=== PATIENT | female | born 1975 | race Caucasian/White ===

== ENCOUNTER 2023-03-31 13:11 | Emergency (ER) | payer OTHER, SELFPAY ==
[2023-03-31 13:13] VITALS: BP 124/81
[2023-03-31 13:32] LABS: % Basophils 0.3 % (0-2); % Eosinophils 0.7 % (0-6); % Immature Granulocytes 0.1 % (0-0.5); % Lymphocytes 13.4 % (20.5-51.1); % Monocytes 7.3 % (1.7-9.3); % Neutrophils 78.2 % (42.2-75.2); Absolute Eosinophils 0.1 10^3/uL (0-0.7); Absolute Lymphocytes 1.5 10^3/uL (1.2-3.4); Absolute Monocytes 0.8 10^3/uL (0.1-0.6); Absolute Neutrophils 8.5 10^3/uL (1.4-6.5); Hematocrit 40.1 % (37.0-47.0); Hemoglobin 14.1 g/dL (12.0-16.0); Mean Corp Hgb Conc. 35.2 g/dL (33.0-37.0); Mean Corpuscular Hgb 31.2 pg (27.0-31.0); Mean Corpuscular Volume 88.7 fL (81.0-99.0); Mean Platelet Volume 9.7 fL (7.4-10.4); Nucleated Red Blood Cells % 0 %; Platelet Count 281 10^3/uL (130-400); Red Blood Cell Count 4.52 10^6/uL (4.20-5.40); White Blood Cell Count 10.9 10^3/uL (4.8-10.8)
[2023-03-31 13:48] LABS: ALT (SGPT) 26 U/L (0-35); AST (SGOT) 23 U/L (14-36); Albumin 4.5 g/dl (3.5-5.0); Alkaline Phosphatase 63 U/L (38-126); Blood Urea Nitrogen 12 mg/dl (7-17); Calcium 9.4 mg/dl (8.4-10.2); Carbon Dioxide 27 mmol/L (22-30); Chloride 105 mmol/L (98-107); Glucose 88 mg/dl (70-99); Potassium 4.2 mmol/L (3.5-5.1); Sodium 136 mmol/L (135-145); Total Bilirubin 0.8 mg/dl (0.2-1.3); Total Protein 7.2 g/dl (6.3-8.2); eGFR > 60.00
[2023-03-31 15:39] LABS: Urine Albumin Negative (Neg - Trace); Urine Bilirubin Negative (Negative); Urine Character Clear (Clear); Urine Color Yellow; Urine Glucose Negative (Negative); Urine Ketone Negative (Negative); Urine Leukocyte Negative (Negative); Urine Nitrite Negative (Negative); Urine Occult Blood Negative (Negative); Urine Urobilinogen Negative (Neg - 1+)
[2023-03-31 15:53] LABS: HCG, Urine Qualitative Screen Negative
--- NOTE | 2023-03-31 16:58 | ED.GENMED ---
History of Present Illness
General
Chief Complaint: Abdominal Pain
Source: patient
Exam Limitations: none
Time Seen by Provider: 03/31/23 16:26
Travel History
Have you had any contact with someone who has COVID-19?: No
Do you have any symptoms of coronavirus? Fever > 100 degrees, chills, cough, shortness of breath, sore throat, loss of taste or smell, muscle aches, or headache?: No
History of Present Illness
History of Present Illness:
47-year-old female presents complaining of 2 to 3 days worth of lower abdominal and pelvic pressure left greater than the right. No nausea vomiting or fever. No vaginal discharge. She has an IUD. She has a history of diverticulitis. No flank
pain. No other complaints at this time. No urinary symptoms
Past History
Past History
ED Past Medical History: None
ED Past Surgical History: Gynecological
Social History
Tobacco: Non-smoker
Alcohol: None
Drug: None
Personal:
Living: with family
Employment: Employed
Phy Exam
Physical Exam
Physical Exam:
General: Well-appearing female no acute respiratory distress
HEENT: Normocephalic atraumatic
Heart: Regular rate and rhythm no murmur
Lungs: Clear to auscultation bilaterally no wheeze
Abdomen: Soft tender to the left lower quadrant no guarding rebound normal bowel sounds nondistended no costovertebral angle to
Course
Orders/Labs/Results
Orders:
Orders
03/31/23 13:17
Test Result ONCE
US Pelvis W Transvag Combined Urgent
Reason For Exam: pelvic pain
03/31/23 13:26
Complete Blood Count/With Diff Urgent
Comprehensive Metabolic Panel Urgent
03/31/23 15:25
HCG, Urine Qualitative Screen Urgent
Date Specimen was Collected: 03/31/23
Time Specimen was Collected: 13:17
Urinalysis Reflex To Culture Urgent
Date Specimen was Collected: 03/31/23
Time Specimen was Collected: 13:17
03/31/23 16:58
CT Abd/pelvis W Iv Cont Urgent
Comment:
Reason For Exam: llq pain
Abnormal Lab Results
03/31/23
13:26
WBC 10.9 H 10^3/uL
(4.8-10.8)
MCH 31.2 H pg
(27.0-31.0)
Absolute Neuts (auto) 8.5 H 10^3/uL
(1.4-6.5)
Absolute Monos (auto) 0.8 H 10^3/uL
(0.1-0.6)
Neutrophils % 78.2 H %
(42.2-75.2)
Lymphocytes % 13.4 L %
(20.5-51.1)
03/31/23 13:26
03/31/23 13:26
Vital Signs
Initial and Last Documented VS:
Initial Vital Signs
Temp Pulse Resp BP Pulse Ox
98.7 F 75 18 124/81 100
03/31/23 13:13 03/31/23 13:13 03/31/23 13:13 03/31/23 13:13 03/31/23 13:13
Last Documented Vital Signs
Temp Pulse Resp BP Pulse Ox
98.7 F 75 18 124/81 100
03/31/23 13:13 03/31/23 13:13 03/31/23 13:13 03/31/23 13:13 03/31/23 13:13
MDM/Problems Addressed
Differential Diagnosis Includes:
Lower abdominal pain Polish could include UTI versus diverticulitis versus ovarian pathology.
Ultrasound of the pelvis was ordered through triage which was positive for 1.2 cm left-sided ovarian cyst but no evidence of rupture or torsion. Uncertain if this is the cause of the pain however given the tenderness on exam will order CT scan of
the abdomen. White blood cell count 10.9
*Critical Care Note
Total Time (30-74mins, 75-104mins- exclusive of procedures): Not Applicable
Update Note
Update Note:
CT does demonstrate mild uncomplicated sigmoid diverticulitis. Will start on Augmentin. Stable for discharge with clear liquid diet
ED Attending Note
-
Portions of this chart may have been created with voice recognition software.� Occasional wrong word or��sound alike� substitutions may have occurred due to the inherent limitations of voice recognition software.
Discharge Plan
Departure
Patient Disposition: Home (Routine Discharge)
Date of Disposition: 03/31/23
Time of Disposition: 18:49
Patient with high blood pressure during this ER visit?: No
Discharge Problem:
Diverticulitis
Instructions: Diverticulitis (DC)
Prescriptions:
New
amoxicillin-pot clavulanate 875-125 mg tablet
1 tab PO BID Qty: 20 0RF
No Action
levofloxacin 500 MG tablet
500 mg PO DAILY
Patient Comments:
Patient took 500mg Sat and 500mg Wednesday.
cholecalciferol (vitamin D3) 1,000 UNITS tablet
1,000 units PO DAILY
multivitamin with folic acid [Tab-A-Jb] 1 TABLET tablet
1 tab PO DAILY
lactobacillus comb no.10 [Probiotic] 1 EACH capsule
1 ea PO BID
metronidazole 250 mg tablet
250 mg PO Q8H Qty: 15 0RF
levofloxacin 500 mg tablet
500 mg PO DAILY 10 Days Qty: 10 0RF
oxycodone 5 mg tablet
5 mg PO Q6H PRN (Reason: Pain) Qty: 10 0RF
Referrals:
Clifford Tejada MD [Family Provider] -
Activity Restrictions/Additional Instructions:
Drink plenty clear liquids. Use Augmentin as directed. Return for worsening symptoms otherwise follow-up with family doctor.
Interventions
Interventions:
*Risk Screen - Suicide Last Done: 03/31/23 13:13
*General Assessment Last Done: 03/31/23 13:13
*Neglect/Abuse Screening Last Done: 03/31/23 15:36
ED- Fall Risk Assessment Last Done: 03/31/23 15:36
*ED COVID-19 Vaccine History Last Done: 03/31/23 13:13
OD-Hwmviz-Lmydegbxfq Assessment Last Done: 03/31/23 15:36
== END 2023-03-31 19:13 | disposition home or self-care (01) ==
LOC: EMR 13:11
PROVIDERS: Emergency Medicine; EMERGENCY PHYSICIAN Emergency Medicine; FAMILY PHYSICIAN Internal Medicine
DX: K57.32 Diverticulitis of large intestine without perforation or abscess without bleeding (principal)
CPT/HCPCS: 99285; 74177; 76830; 76856; 80053; 81003; 81025; 85025; Q9967

== ENCOUNTER → 2023-04-29 08:26 | Outpatient (REF) | payer OTHER, SELFPAY | LOC: WDC 08:26 | PROVIDERS: ATTENDING PHYSICIAN Obstetrics & Gynecology Gynecology; FAMILY PHYSICIAN Internal Medicine | DX: Z12.31 Encounter for screening mammogram for malignant neoplasm of breast (principal) | CPT/HCPCS: 77063; 77067 ==

== ENCOUNTER → 2023-06-11 08:49 | Outpatient (REF) | payer OTHER, SELFPAY | LOC: WDC 08:49 | PROVIDERS: ATTENDING PHYSICIAN Obstetrics & Gynecology Gynecology; FAMILY PHYSICIAN Internal Medicine | DX: R92.2 Inconclusive mammogram (principal); Z80.3 Family history of malignant neoplasm of breast | CPT/HCPCS: 76641 ==

== ENCOUNTER → 2023-12-22 06:16 | Day surgery (SDC) | payer OTHER, SELFPAY | LOC: GI 06:16 | PROVIDERS: ATTENDING PHYSICIAN Internal Medicine | DX: K57.30 Diverticulosis of large intestine without perforation or abscess without bleeding (principal); D12.3 Benign neoplasm of transverse colon; K63.5 Polyp of colon; K57.32 Diverticulitis of large intestine without perforation or abscess without bleeding | CPT/HCPCS: 45385; 45380; 88305 ==

== ENCOUNTER → 2024-05-04 08:28 | Outpatient (REF) | payer OTHER, SELFPAY | LOC: WDC 08:28 | PROVIDERS: ATTENDING PHYSICIAN Obstetrics & Gynecology Gynecology; FAMILY PHYSICIAN Internal Medicine | DX: Z12.31 Encounter for screening mammogram for malignant neoplasm of breast (principal) | CPT/HCPCS: 77063; 77067 ==

== ENCOUNTER → 2024-07-28 10:52 | Outpatient (REF) | payer OTHER, SELFPAY | LOC: WDC 10:52 | PROVIDERS: ATTENDING PHYSICIAN Obstetrics & Gynecology Gynecology; FAMILY PHYSICIAN Internal Medicine | DX: R92.30 Dense breasts, unspecified (principal) | CPT/HCPCS: 76641 ==